=== PATIENT | male | born 1980 | race Two or more races ===

== ENCOUNTER 2018-10-11 12:04 | Emergency (ER) | payer MEDICAID ==
[~2018-10-11] VITALS: Ht 172.7 cm; Wt 79.8 kg
[2018-10-11] MEDS ORDERED: KETOROLAC TROMETHAMINE INJ 30 MG/ML VIAL IV ONE (12:30)
[2018-10-11] MEDS ORDERED: IV NS 0.9% 1,000 ML BAG IV ONE (12:30)
[2018-10-11] MEDS ORDERED: diphenhydrAMINE HCL 50 MG/ML VIAL IV ONE (12:30)
[2018-10-11] MEDS ORDERED: METOCLOPRAMIDE HCL 10 MG/2 ML VIAL IV ONE (12:30)
[2018-10-11] MEDS ORDERED: KETOROLAC TROMETHAMINE INJ 30 MG/ML VIAL ONE (12:43)
[2018-10-11] MEDS ORDERED: diphenhydrAMINE HCL 50 MG/ML VIAL ONE (12:43)
[2018-10-11] MEDS ORDERED: METOCLOPRAMIDE HCL 10 MG/2 ML VIAL ONE (12:43)
[2018-10-11 13:14] LABS: BASOPHILS # (AUTO) 0.1 /CMM (0.0-0.2); EOSINOPHILS % (AUTO) 2.1 % (0.0-6.0); HEMATOCRIT 44 % (39-51); HEMOGLOBIN 14.9 g/dL (13.5-17.5); LYMPHOCYTES # (AUTO) 1.5 /CMM (0.8-4.8); LYMPHOCYTES % (AUTO) 18.4 % (20.0-44.0); MEAN CORPUSCULAR HGB CONC 34 g/dl (31.0-36.0); MEAN CORPUSCULAR VOLUME 84 fL (80-96); MONOCYTES # (AUTO) 0.5 /CMM (0.1-1.30); MONOCYTES % (AUTO) 6.4 % (2.0-12.0); NEUTROPHILS # (AUTO) 5.7 /CMM (1.8-8.9); NEUTROPHILS % (AUTO) 72.1 % (43.0-81.0); PLATELET COUNT (AUTO) 282 /CMM (150-450); RED BLOOD CELL COUNT(AUTO) 5.23 MIL/uL (4.5-6.0); WHITE BLOOD COUNT (AUTO) 7.9 K/uL (4.3-11.0)
[2018-10-11 13:18] LABS: CALCIUM, SERUM 8.8 mg/dL (8.5-10.1); CARBON DIOXIDE 27 mmol/L (21-32); CHLORIDE 102 mmol/L (98-107); CREATININE 0.8 mg/dL (0.6-1.3); GLUCOSE 157 mg/dL (74-106); POTASSIUM 3.2 mmol/L (3.5-5.1); SODIUM SERUM 135 mmol/L (136-145); UREA NITROGEN, BLOOD 11 mg/dL (7-18)
[2018-10-11 13:32] LABS: ALANINE AMINOTRANSFERASE 86 U/L (12-78); ALBUMIN 4.1 g/dL (3.4-5.0); ALKALINE PHOSPHATASE 91 U/L (46-116); ASPARTATE AMINOTRANSFERASE 35 U/L (15-37); BILIRUBIN,DIRECT 0.1 mg/dL (0.0-0.2); BILIRUBIN,TOTAL 0.4 mg/dL (0.2-1.0); TOTAL PROTEIN, SERUM 7.5 g/dL (6.4-8.2)
[2018-10-11] MEDS ORDERED: DEXAMETHASONE SOD PHOSPHATE 4 MG/ML VIAL IV ONE (14:00)
[2018-10-11] MEDS ORDERED: POTASSIUM CHLORIDE 20 MEQ TAB.PRT.SR PO ONE ×2 (14:00→14:14)
[2018-10-11] MEDS ORDERED: DEXAMETHASONE SOD PHOSPHATE 4 MG/ML VIAL ONE (14:14)
[2018-10-11] MEDS ORDERED: POTASSIUM CHLORIDE 10 MEQ TABLET.SA ONE (14:14)
--- NOTE | 2018-10-11 14:45 | NUR ---
patient bib ra, c/o headace, on room air, breathing evenly and unlabored. connected to the monitor and pulse ox, kept comfortable, will continue to monitor accordingly.
[2018-10-11 15:17] VITALS: BP 145/88
--- NOTE | 2018-10-11 15:18 | NUR ---
Patient discharged to home in stable condition. Written and verbal after care instructions given. Patient verbalizes understanding of instruction.
== END 2018-10-11 15:18 | disposition home or self-care (01) ==
LOC: ER 12:07
DX: R51 Headache (principal); R42 Dizziness and giddiness
CPT/HCPCS: 36415; 70450; 80048; 80076; 84484; 85025; 93005; 96361; 96374; 96375; 99284; A4216; A4606; J1100; J1200; J1885; J2765; J7030; Z7610

== ENCOUNTER 2019-09-12 12:42 | Emergency (ER) | payer MEDICAID, OTHER ==
[~2019-09-12] VITALS: Ht 167.6 cm; Wt 71.7 kg
[2019-09-12 12:46] VITALS: BP 148/94
--- NOTE | 2019-09-12 12:50 | NUR ---
PT CAME IN FOR ANXIETY ATTACK X 2 WEEKS. OFF ATARAX 2 DAYS AGO. PT AAPX4, VSS, BREATHING EVEN AND UNLABORED ON ROOM AIR W/ NAD NOTED. PT CONNECTED TO THE MONITOR AND POX.
[2019-09-12] MEDS ORDERED: LORAZEPAM 0.5 MG TABLET ONE (13:15)
--- NOTE | 2019-09-12 13:19 | NUR ---
Patient discharged to home in stable condition. Written and verbal after care instructions given. Patient verbalizes understanding of instruction.
[2019-09-12] MEDS ORDERED: LORAZEPAM 0.5 MG TABLET PO ONE (13:30)
== END 2019-09-12 13:19 | disposition home or self-care (01) ==
LOC: ER 12:44
DX: F41.9 Anxiety disorder, unspecified (principal)

== ENCOUNTER 2020-10-26 10:26 | Emergency (ER) | payer OTHER ==
[2020-10-26] VITALS (10 sets, daily range): BP systolic 122–149; BP diastolic 68–95
[~2020-10-26] VITALS: Ht 172.7 cm; Wt 83.9 kg
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
[2020-10-26] MEDS ORDERED: FENTANYL PF 100MCG/2ML AMPUL ONE ×2 (10:56→13:21)
[2020-10-26] MEDS ORDERED: TDAP [DIPH/PERTUSSIS/TET] 0.5 ML VIAL IM ONE ×2 (10:58→11:30)
[2020-10-26] MEDS ORDERED: CEFAZOLIN 1 GM in IV D5W 50 ML IV ONE (11:00)
[2020-10-26] MEDS ORDERED: FENTANYL PF 100MCG/2ML AMPUL IV ONE (11:00)
--- NOTE | 2020-10-26 11:05 | NUR ---
PAGED BARRY FOR CONSULT.
[2020-10-26 11:14] LABS: BASOPHILS # (AUTO) 0.1 /CMM (0.0-0.2); BASOPHILS % (AUTO) 1.3 % (0.0-2.0); EOSINOPHILS % (AUTO) 3.3 % (0.0-6.0); HEMATOCRIT 46 % (39-51); HEMOGLOBIN 15.4 g/dL (13.5-17.5); LYMPHOCYTES % (AUTO) 24.3 % (20.0-44.0); MEAN CORPUSCULAR HGB CONC 34 g/dl (31.0-36.0); MEAN CORPUSCULAR VOLUME 85 fL (80-96); MONOCYTES # (AUTO) 0.7 /CMM (0.1-1.30); MONOCYTES % (AUTO) 7.9 % (2.0-12.0); NEUTROPHILS # (AUTO) 5.3 /CMM (1.8-8.9); NEUTROPHILS % (AUTO) 63.2 % (43.0-81.0); PLATELET COUNT (AUTO) 289 /CMM (150-450); RED BLOOD CELL COUNT(AUTO) 5.33 MIL/uL (4.5-6.0); WHITE BLOOD COUNT (AUTO) 8.4 K/uL (4.3-11.0)
--- NOTE | 2020-10-26 11:15 | NUR ---
H[employer] M[employer] ROLLER AT BEDSIDE FOR XRAY.
[2020-10-26 11:26] LABS: CALCIUM, SERUM 8.5 mg/dL (8.5-10.1); CARBON DIOXIDE 26 mmol/L (21-32); CHLORIDE 102 mmol/L (98-107); CREATININE 0.8 mg/dL (0.6-1.3); GLUCOSE 106 mg/dL (74-106); POTASSIUM 3.5 mmol/L (3.5-5.1); SODIUM SERUM 140 mmol/L (136-145); UREA NITROGEN, BLOOD 13 mg/dL (7-18)
[2020-10-26 11:28] LABS: ALCOHOL, BLOOD < 3 mg/dL (0-0)
--- NOTE | 2020-10-26 12:38 | NUR ---
PATIENT SIGNED CONSENT FOR PROCEDURE, ANESTHESIA AND BLOOD TRANSFUSION
[2020-10-26] MEDS ORDERED: BUPIVACAINE 0.5 % PF 150 MG/30 ML VIAL ONE (12:50)
[2020-10-26] MEDS ORDERED: ANESTHESIA TRAY IN PYXIS 1 EA TRAY MC ONE (12:50)
--- NOTE | 2020-10-26 12:51 | NUR ---
Patient picked up by or nurse via gurney. VSS.
[2020-10-26] MEDS ORDERED: MIDAZOLAM HCL 2 MG/2ML VIAL ONE (13:21)
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
--- NOTE | 2020-10-26 18:40 | NUR ---
MS RN CLOSING NOTES PT AWAKE AND RESTING IN BED AT THIS TIME. A/O X4. ABLE TO MAKE NEEDS KNOWN. ON ROOM AIR, TOLERATING WELL, BREATHING EVEN AND UNLABORED. DRESSING ON RIGHT KNEE CLEAN, DRY, INTACT AND WRAPPED WITH VIRAJ BANDAGE . V/S CHECKED, STABLE AND RECORDED. IV ACCESS ON LAC G#18 INTACT, PATENT AND FLUSHES WELL. SAFETY MEASURES MAINTAINED; BED PLACED IN LOWEST LOCKED POSITION WITH SR UP X2. CALL LIGHT W/IN REACH. PT FOR DISCHARGE HOME TONIGHT IF STABLE. WILL ENDORSE TO EXTRUSION SUPERVISOR NURSE.
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
--- NOTE | 2020-10-26 20:30 | NUR ---
MS RN NOTES D/C AT THIS TIME VIA WHEELCHAIR,WITH PRIVATE TRANSPORT,IN STABLE CONDITION.
== END 2020-10-26 13:00 | disposition other institution (70) ==
LOC: ER 10:40 → MED 15:13 → UNDOADMIN 15:13 → UNDODISIN 20:30
DX: S81.042A Puncture wound with foreign body, left knee, initial encounter (principal); W34.09XA Accidental discharge from other specified firearms, initial encounter; Y93.H3 Activity, building and construction; Y92.61 Building [any] under construction as the place of occurrence of the external cause; M17.12 Unilateral primary osteoarthritis, left knee; Z20.822 Contact with and (suspected) exposure to COVID-19
CPT/HCPCS: 36415; 73564; 80048; 80320; 85025; 85730; 86850; 87426; 88300; 90471; 90715; 96365; 96375; 99285; C9803; J0690 ×2; J2250; J2704; J3010 ×2; J3490; J7060; G0378; G0480

== ENCOUNTER 2020-12-07 12:20 | Emergency (ER) | payer OTHER ==
[~2020-12-07] VITALS: Ht 172.7 cm; Wt 79.8 kg
--- NOTE | 2020-12-07 12:35 | NUR ---
THE PATIENT IS BIBSELF FOR C/O LOWER BACK PAIN SINCE SATURDAY S/P BENDING OVER. THE PATIENT RATES PAIN /. DENIES ANY TINGLING/NUMBNESS IN EXTREMITIES. PATIENT STATES THAT HE HAS HX OF LOWER BACK PAIN. WILL CONTINUE TO MONITOR THE PATIENT.
[2020-12-07] MEDS ORDERED: HYDR-4303 PO (14:22)
[2020-12-07 14:29] VITALS: BP 150/79
--- NOTE | 2020-12-07 14:29 | NUR ---
Patient discharged to home in stable condition. Written and verbal after care instructions given. Patient verbalizes understanding of instruction.
== END 2020-12-07 14:30 | disposition home or self-care (01) ==
LOC: ER 12:25
DX: M54.5 Low back pain (principal); G89.29 Other chronic pain; J45.909 Unspecified asthma, uncomplicated; F41.9 Anxiety disorder, unspecified